=== PATIENT | male | born 1975 | race Caucasian/White ===

== ENCOUNTER 2017-12-07 01:03 | Emergency (ER) | payer OTHER ==
[~2017-12-07] VITALS: Ht 180.3 cm; Wt 62.0 kg
[2017-12-07] MEDS ORDERED: TRAZODONE HCL50 MG PO (04:37)
[2017-12-07 05:34] LABS: CHLORIDE 92 mEq/L (99-109); POTASSIUM 4.1 mEq/L (3.7-5.4); SODIUM 129 mEq/L (136-147)
[2017-12-07 05:36] LABS: GLUCOSE 99 mg/dL (70-99)
[2017-12-07 05:40] LABS: CREATININE 1.1 mg/dL (0.6-1.3); GFR ESTIMATE (CALCULATED) > 59 mL/min/ (58.99-99999); HEMATOCRIT 40.8 % (38.0-50.0); MCH 27.9 PG (29.0-34.0); MCHC 34.3 G/DL (30.0-36.0); MCV 81.3 FL (86-99); PLATELET COUNT 513 K/uL (156-360); RBC DIS.WIDTH-CV 14.2 % (11.8-14.6); RBC DIS.WIDTH-SD 41.2 % (39-53); RED BLOOD COUNT 5.02 M/uL (4.00-5.50); WHITE BLOOD COUNT 11.3 K/uL (4.1-10.2)
[2017-12-07 05:41] LABS: UREA NITROGEN (BUN) 15 mg/dL (9-23)
[2017-12-07 05:48] VITALS: BP 112/81
== END 2017-12-07 05:49 | disposition home or self-care (01) ==
LOC: EME 01:03
PROVIDERS: Emergency Medicine
DX: G47.00 Insomnia, unspecified (principal); E87.1 Hypo-osmolality and hyponatremia; F32.9 Major depressive disorder, single episode, unspecified; F41.9 Anxiety disorder, unspecified; F17.200 Nicotine dependence, unspecified, uncomplicated
CPT/HCPCS: 80047; 80048; 85027; 99281; 99283